=== PATIENT | male | born 1945 | race Caucasian/White ===

== ENCOUNTER 2018-09-07 11:30 | Emergency (ER) | payer OTHER ==
[2018-09-07 11:39] VITALS: BP 137/98; PULSE 97; TEMP 98.7; BMI 27.9
--- NOTE | 2018-09-07 11:39 | PDOC ---
History of Present Illness - General Chief Complaint: Bite Stated Complaint: LEFT HAND/2ND FINGER DOG BITE Time Seen by Provider: 09/07/18 11:38 - History of Present Illness Initial Comments: 09/07/18 12:12 Pt presents to the ED complaining of dog bite to the L second digit that occurred this morning. The dog was known to the patient, and is UTD on all vaccines including rabies. Seen in an urgent care, where the wound was soaked in iodine, but was referred to the ED for further treatment. uncertain of last tetanus. Past History - Past Medical History Allergies/Adverse Reactions: Allergies Allergy/AdvReac Type Severity Reaction Status Date / Time No Known Allergies Allergy Verified 09/07/18 11:31 Home Medications: Ambulatory Orders Amoxicillin/Potassium Clav [Augmentin 875-125 Tablet] 1 each PO BID 10 Days #20 tablet 09/07/18 Dutasteride 0.5 mg PO DAILY 09/07/18 Fenofibrate,Micronized [Fenofibrate] 134 mg PO DAILY 09/07/18 Lisinopril 5 mg PO DAILY 09/07/18 Oxybutynin Chloride [Oxybutynin Chloride ER] 15 mg PO DAILY 09/07/18 Pantothenic Acid (Vit B5) [Pantothenic Acid] 500 mg PO DAILY 09/07/18 Red Yeast Rice 1,200 mg PO DAILY 09/07/18 Tamsulosin HCl [Flomax] 0.4 mg PO DAILY 09/07/18 Review of Systems - Review of Systems Able to Perform ROS?: Yes Comments:: 09/07/18 12:15 Hand: no active bleeding. + pain in the area of the laceration. No swelling or erythema Is the patient limited [place] proficient: No Procedures - Laceration/Wound Repair Left Proximal 2nd digit Wound Length: 2.6 to 5.0 cm Wound Explored: contaminated Wound's Depth, Shape: superficial, linear Irrigated w/ Saline: Yes Betadine Prep: No Anesthesia: 2% Lidocaine Amount of Anesthetic (ccs): 3 Wound Repaired With: Sutures Suture Size/Type: 5:0, nylon Number of Sutures: 3 Layer Closure: No Sterile Dressing Applied: Yes Splint Applied: Yes Type of Splint Applied: finger Medical Decision Making - Medical Decision Making 09/07/18 12:16 Pt presents to the ED with 3.5 cm laceration to the L second digit after a dog bite. Denies other injuries. Concern that the wound will become infected, but given the size of the wound, will approximate loosely with 3 sutures. Wound irrigated with 1 L normal saline. Will start broad spectrum antibiotics and instruct patient to return to the ED in two days for a wound check. Will instruct patient to return to the ED immediately for signs of infection. 09/07/18 12:33 *DC/Admit/Observation/Transfer Diagnosis at time of Disposition: Bite wound - Discharge Dispostion Disposition: HOME Condition at time of disposition: Good Decision to Admit order: No - Prescriptions Prescriptions: Amoxicillin/Potassium Clav [Augmentin 875-125 Tablet] 1 each PO BID 10 Days #20 tablet - Referrals Referrals: Hernan Li MD [Staff Physician] - 2 Days - Patient Instructions Printed Discharge Instructions: DI for Animal Bites Additional Instructions: you came to the Ed because you had a dog bite on your finger. We washed your wound, and left it mostly open to decrease the risk of infection. We have also started you on antibiotics. Despite these precautions, your finger may still become infected. You should return immediately to the ED for fever, nausea or vomiting, redness, swelling or tenderness of your finger, pus from the wound, other new or worsening symptoms. Return to the ED in two days for a wound check , so we can make sure the wound is healing well and not becoming infected. Make sure you take the antbiotics until they are all gone. - Post Discharge Activity
[2018-09-07] MEDS ORDERED: LIDOCAINE HCL 2% (50ML VIAL) INF ONE (11:52)
[2018-09-07] MEDS ORDERED: AMOX TR/POT CLAV 875MG/125MG TABLETS (FP) PO ONE (11:52)
[2018-09-07] MEDS ORDERED: AMOX TR/POT CLAV 875MG/125MG TABLETS (FP) ONE (11:59)
[2018-09-07] MEDS ORDERED: LIDOCAINE HCL 2% (20ML MULTI-DOSE VIAL) NR ONE (11:59)
[2018-09-07] MEDS ORDERED: DIPHTH,PERTUSS(ACELL),TET 0.5 ML DISP.SYRIN IM ONE ×2 (11:59→12:03)
== END 2018-09-07 12:55 | disposition home or self-care (01) ==
LOC: FER 11:30
PROC: 0HQGXZZ Repair Left Hand Skin, External Approach (ICD-10-PCS; principal; 2018-09-07)
PROC: 3E0234Z Introduction of Serum, Toxoid and Vaccine into Muscle, Percutaneous Approach (ICD-10-PCS; 2018-09-07)
DX: S61.251A Open bite of left index finger without damage to nail, initial encounter (principal); W54.0XXA Bitten by dog, initial encounter; Y93.9 Activity, unspecified; Y92.9 Unspecified place or not applicable
CPT/HCPCS: 90715; 99283-25

== ENCOUNTER 2018-09-09 13:23 | Emergency (ER) | payer OTHER ==
[2018-09-09 13:39] VITALS: BP 127/90; PULSE 79; TEMP 97.8; BMI 27.9
--- NOTE | 2018-09-09 13:46 | PDOC ---
History of Present Illness - General Chief Complaint: Revisit,Wound Recheck Stated Complaint: LEFT 2ND FINGER DOG BITE Time Seen by Provider: 09/09/18 13:24 - History of Present Illness Initial Comments: 09/09/18 14:44 73yo M presents from home for 2-day wound check s/p dog bite and suture placement 2 days ago here at the ED. Pt was instructed to return today for a wound check. Pt was here on 09/07/18 for a dog bite that AM, his own dog. 3.5cm lac on L 2nd digit was irrigated and 3 loose sutures and splint were applied. Pt removed the splint after 24hrs and redressed the wound with gauze and tape. Pt has taken his prescribed Augment BID except for missing one last night. Pt endorses constant pain to the wound since discharge, not worsening, no pain meds taken. Denies worsening pain, redness, swelling, pus drainage, fever, chills, N/V, CP, SOB, or other complaints. Past History - Past Medical History Allergies/Adverse Reactions: Allergies Allergy/AdvReac Type Severity Reaction Status Date / Time No Known Allergies Allergy Verified 09/09/18 13:30 Home Medications: Ambulatory Orders Amoxicillin/Potassium Clav [Augmentin 875-125 Tablet] 1 each PO BID 10 Days #20 tablet 09/07/18 Dutasteride 0.5 mg PO DAILY 09/07/18 Fenofibrate,Micronized [Fenofibrate] 134 mg PO DAILY 09/07/18 Lisinopril 5 mg PO DAILY 09/07/18 Oxybutynin Chloride [Oxybutynin Chloride ER] 15 mg PO DAILY 09/07/18 Pantothenic Acid (Vit B5) [Pantothenic Acid] 500 mg PO DAILY 09/07/18 Red Yeast Rice 1,200 mg PO DAILY 09/07/18 Tamsulosin HCl [Flomax] 0.4 mg PO DAILY 09/07/18 Naproxen 500 mg PO BID #20 tablet 09/09/18 COPD: No Disorders: Yes (BPH) HTN: Yes Hypercholesterolemia: Yes - Surgical History Abdominal Surgery: Yes (HERNIA) - Suicide/Smoking/Psychosocial Hx Smoking History: Never smoked Have you smoked in the past 12 months: No Information on smoking cessation initiated: No Hx Alcohol Use: No Drug/Substance Use Hx: No Review of Systems - Review of Systems Comments:: 09/09/18 14:54 Constitutional: Negative for chills, fever, fatigue. HENT: Negative for sore throat, rhinorrhea, congestion. Eyes: Negative for visual disturbance. Respiratory: Negative for shortness of breath, cough, and wheezing. Cardiovascular: Negative for chest pain, palpitations, and leg swelling. Gastrointestinal: Negative for abdominal pain, blood in stool, constipation, diarrhea, nausea, and vomiting. Genitourinary: Negative for dysuria, flank pain, and hematuria. Musculoskeletal: Positive for L 2nd digit laceration with 3 sutures and pain. Negative for myalgias, back pain, and neck pain. Skin: Negative for rash. Neurological: Negative for light-headedness, dizziness, syncope, weakness, numbness and headaches. Psychiatric/Behavioral: Negative for behavioral problems and confusion. *Physical Exam - Vital Signs Last Vital Signs Temp Pulse Resp BP Pulse Ox 97.8 F 79 18 127/90 98 09/09/18 13:28 09/09/18 13:28 09/09/18 13:28 09/09/18 13:28 09/09/18 13:28 - Physical Exam Comments: 09/09/18 14:48 Gen: Alert, NAD, comfortable-appearing. HEENT: Slight tremor of inferior R eyelid (chronic). PERRL, MMM, NCAT. No conjunctival pallor. Sclera are non-icteric. CV: Regular rate and rhythm. No murmurs, rubs, or gallops. PULM: No resp distress. CTAB, no wheezes, rales, or rhonchi. ABD: soft, NT/ND, no rebound tenderness or guarding. MSK: No bony deformities. 2+ pulses in all extremities. NEURO: AAOx3. PERRL. No gross CN deficits. Strength and sensation grossly intact throughout. EXTREMITIES: No cyanosis. No clubbing. No edema. No calf tenderness. Left 2nd digit: Wound clean and dry. Well-healing approx 2cm lac on palmar side , [address], no erythema or edema or warmth or bleeding or purulence or drainage. Sensation to light touch intact. Full flexion and extension of all joints. Normal capillary refill. Mild TTP around wound. PSYCH: Normal mood and thought pattern. SKIN: Warm and dry. Normal capillary refill. No rashes. No jaundice. Medical Decision Making - Medical Decision Making 09/09/18 13:46 73yo M presents from home for 2-day wound check s/p dog bite and suture placement 2 days ago here at the ED. Hemodynamically stable, no s/s of infection , neurovascularly intact. Loose sutures in place, healing well from secondary intention. Pt taking prescribed Augmentin. -Apply new gauze and tape -Naproxen 500mg for pain -Dispo: d/c home with instructions to return for wound check and possible suture removal in 4-5 days and hand surgeon referral for within 1 wk. Prescribe 500mg Naproxen BID for pain. Gauze applied. Return precautions given. Pt understands all dc instructions and all questions were answered. *DC/Admit/Observation/Transfer Diagnosis at time of Disposition: Bite wound - Discharge Dispostion Disposition: HOME Condition at time of disposition: Stable Decision to Admit order: No - Prescriptions Prescriptions: Naproxen 500 mg PO BID #20 tablet - Referrals Referrals: Jcaob Pedro MD [Staff Physician] - Hernan Li MD [Staff Physician] - - Patient Instructions Printed Discharge Instructions: DI for Dog Bite Additional Instructions: You have been seen in the Emergency Department for a follow-up visit on your dog bite. The loose sutures are still in place, the wound is healing well, and there are no signs of infection. Continue to take your antibiotics as prescribed until they are all gone. Keep the wound clean and dry. If you experience pain, we have prescribed you Naproxen 500mg - you can take 1 pill twice a day as needed for pain. Return to the ED of your primary care doctor in 4-5 days ( or Monday) for a wound check and possible suture removal. We have given you a referral to 2 hand surgeons. Call one of them to set up a follow-up appointment within 1 week. Return to the ED immediately if you experience pain not controlled by over the counter medications, fever, nausea or vomiting, redness or swelling or tenderness of your finger, pus from the wound, or any other new or worsening symptom. - Post Discharge Activity
[2018-09-09] MEDS ORDERED: NAPROXEN 500 MG TABLET (FP) PO ONE (14:09)
[2018-09-09] MEDS ORDERED: NAPROXEN 500 MG TABLET (FP) ONE (14:12)
--- NOTE | 2018-09-09 14:22 | PDOC ---
Attending Attestation - Resident Resident Name: Erma Davis - ED Attending Attestation I have performed the following: I have examined & evaluated the patient, The case was reviewed & discussed with the resident, I agree w/resident's findings & plan, Exceptions are as noted - HPI HPI: 09/09/18 14:36 73 year old M returns for a wound check. Two days ago, pt was bitten by a dog on his left second digit. At that time, had 3 loose sutures placed and placed on augmentin. Instructed to follow up today for wound check. Since then, pt has no complaints. No fever, rash, wound drainage, or purulence. - Physicial Exam PE: 09/09/18 14:37 GENERAL: Awake, alert, and fully oriented, in no acute distress HEAD: No signs of trauma EYES: EOMI, sclera anicteric, conjunctiva clear ENT: Auricles normal inspection, hearing grossly normal, nares patent NECK: Normal ROM, supple EXTREMITIES: Normal range of motion, no edema. LUE: 2+ radial pulse. Sensation and strength intact throughout the median/radian /ulnar nerve distribution. < 2 sec cap refill. Full flexion and extension of all digits appreciated. Left 2nd digit with approx 1 cm wound loosely tied with 3 sutures. The site is clean, dry, intact with no evidence of infection. No erythema, drainage, or discharge. NEUROLOGICAL: Cranial nerves II through XII grossly intact. Normal speech, normal gait SKIN: Warm, Dry, normal turgor, no rashes or lesions noted. - Medical Decision Making 09/09/18 14:39 Vital Signs Temp Pulse Resp BP Pulse Ox 97.8 F 79 18 127/90 98 09/09/18 13:28 09/09/18 13:28 09/09/18 13:28 09/09/18 13:28 09/09/18 13:28 This is a dog bite that is healing from secondary intention. At this time, there are no signs of infection. However, the sutures will be left in place. I instructed the patient to return in 5 days for a wound check and for potential suture removal. Will have the patient continue to take the augmentin. Will also have the patient follow up with a hand surgeon as well. Pt verbalizes understanding and agrees with plan.
== END 2018-09-09 14:40 | disposition home or self-care (01) ==
LOC: FER 13:23
DX: Z48.01 Encounter for change or removal of surgical wound dressing (principal)
CPT/HCPCS: 99281-25